=== PATIENT | male | born 1980 | race Caucasian/White ===

== ENCOUNTER 2017-07-12 13:11 | Inpatient (IN) | payer MEDICAID ==
[~2017-07-12] VITALS: Ht 170.2 cm; Wt 81.0 kg
[2017-07-12] MEDS ORDERED: ondansetron/PF 4mg/2ml inj IV ONE (14:25)
[2017-07-12] MEDS ORDERED: normal saline 1000ML IV soln IVB ONE (14:25)
[2017-07-12] MEDS ORDERED: LORazepam 2 mg/ml vial IV ONE (14:25)
[2017-07-12] MEDS ORDERED: diphenhydrAMINE 50 mg/ml inj IM ONE (14:25)
[2017-07-12 14:53] LABS: BASOPHILS % (AUTO) 0.3 % (0-1); EOSINOPHILS # (AUTO) 0.2 X10'3 (0-0.9); EOSINOPHILS % (AUTO) 1.8 % (0-6); HEMATOCRIT 50.3 % (42.0-52.0); HEMOGLOBIN 16.9 g/dl (14.0-17.9); LYMPHOCYTES # (AUTO) 2.1 X10'3 (1.1-4.8); LYMPHOCYTES % (AUTO) 24.2 % (21-51); MEAN CORPUSCULAR HEMOGLOBIN 27.9 PG (27.0-31.0); MEAN CORPUSCULAR HGB CONC 33.6 % (33.0-36.5); MEAN PLATELET VOLUME 7.9 FL (7.4-10.4); MONOCYTES # (AUTO) 0.5 X10'3 (0-0.9); MONOCYTES % (AUTO) 6.3 % (2-12); NEUTROPHILS # (AUTO) 5.7 X10'3 (1.8-7.7); NEUTROPHILS % (AUTO) 67.4 % (42-75); PLATELET COUNT 235 X10'3 (140-440); RED BLOOD COUNT 6.06 X10'6 (4.70-6.10); RED CELL DISTRIBUTION WIDTH 14.6 % (11.5-14.5); WHITE BLOOD COUNT 8.5 X10'3 (4.5-11.0)
[2017-07-12 14:56] LABS: CLARITY,URINE CLEAR (Clear); COLOR,URINE YELLOW (Yellow); GLUCOSE, URINE NEGATIVE (Neg); KETONES,URINE NEGATIVE (Neg); LEUKOCYTE ESTERASE ,URINE NEGATIVE (Neg); NITRITES, URINE NEGATIVE (Neg); OCCULT BLOOD,URINE NEGATIVE (Neg); PH,URINE 8.5 (4.8-8.0); PROTEIN,URINE NEGATIVE (Neg); UA COLLECTION TYPE CLN CATCH MIDSTREAM; UROBILINOGEN,URINE 0.2 E.U/dL (0.2-1.0)
[2017-07-12 15:00] LABS: URINE AMPHETAMINE SCREEN NEGATIVE (Neg); URINE BARBITUATE SCREEN NEGATIVE (Neg); URINE BENZODIAZEPINES SCREEN NEGATIVE (Neg); URINE CANNABINOID SCREEN POSITIVE (Neg); URINE COCAINE SCREEN NEGATIVE (Neg); URINE METHADONE SCREEN NEGATIVE (Neg); URINE OPIATE SCREEN NEGATIVE (Neg); URINE PHENCYCLIDINE SCREEN NEGATIVE (Neg)
[2017-07-12 15:03] LABS: INR 1.1 INR; PARTIAL THROMBOPLASTIN TIME 23 SECONDS (22-32); PROTHROMBIN TIME 10.9 SECONDS (9.0-12.0)
[2017-07-12 15:09] LABS: ALANINE AMINOTRANSFERASE 60 U/L (12-78); ALKALINE PHOSPHATASE 117 IU/L (46-116); ANION GAP 16 (8-16); ASPARTATE AMINO TRANSFERASE 55 U/L (10-37); BILIRUBIN,TOTAL 0.7 MG/DL (0.1-1.0); BLOOD UREA NITROGEN 12 MG/DL (7-18); CALCIUM 10.4 MG/DL (8.5-10.1); CHLORIDE 101 MMOL/L (99-107); CREATININE 1.34 MG/DL (0.60-1.10); GLUCOSE 129 MG/DL (70-104); POTASSIUM 3.1 MMOL/L (3.5-5.1); SODIUM 141 MMOL/L (135-145); TOTAL CARBON DIOXIDE 23.8 MMOL/L (24-32); TOTAL PROTEIN 8.2 G/DL (6.4-8.2); eGFR 60 ML/MIN
[2017-07-12 15:15] LABS: ETHANOL < 0.010 GM/DL (0.0-0.010)
[2017-07-12 15:38] LABS: LIPASE 3927 U/L (73-393)
[2017-07-12] MEDS: potassium Cl 20mEq in NS 1,000 ML IV SCH ×2 (16:19→18:54)
[2017-07-12] MEDS ORDERED: mag hydrox/Alum hydrox/simeth 30ml oral suspension PO PRN (16:20)
[2017-07-12] MEDS ORDERED: acetaminophen 325mg tablet PO PRN (16:20)
[2017-07-12] MEDS ORDERED: ondansetron/PF 4mg/2ml inj IV PRN (16:20)
[2017-07-12] MEDS ORDERED: potassium Cl 20 mEq SR tablet PO PRN ×2 (16:20)
[2017-07-12] MEDS ORDERED: magnesium Cl slow-release 64mg tablet PO PRN (16:20)
[2017-07-12] MEDS ORDERED: magnesium hydroxide 30ml (MOM) UD suspension PO PRN (16:20)
[2017-07-12] MEDS ORDERED: magnesium 2GM in 50ml NS 50 ML IV PRN (16:20)
[2017-07-12] MEDS ORDERED: potassium Cl 40MEQ/NS 500ml 500 ML IV PRN ×2 (16:20)
[2017-07-12] MEDS ORDERED: magnesium 4gm in 100ml NS 100 ML IV PRN (16:20)
[2017-07-12] MEDS ORDERED: HYDROmorphone 1 mg/ml syringe IV PRN ×2 (16:20)
[2017-07-12] MEDS: potassium 10mEq/100ml NS w/LIDOcaine (10mg/bag) IV SCH ×2 (16:31→17:00)
[2017-07-12] MEDS ORDERED: haloperidol 5mg tablet PO PRN (17:05)
[2017-07-12] MEDS ORDERED: dextrose 50%-water 50ml dispensing syringe IV PRN (17:05)
[2017-07-12] MEDS ORDERED: haloperidol lactate 5mg/ml inj IM PRN (17:05)
[2017-07-12] MEDS ORDERED: thiamine 100mg/ml 2ml inj. IV ONE (17:05)
[2017-07-12] MEDS ORDERED: HYDROmorphone inj. 0.5 MG/0.5 ML DISP.SYRIN IV PRN (18:37)
[2017-07-12] MEDS: HYDROmorphone inj. 0.5 MG/0.5 ML DISP.SYRIN IV PRN ×2 (18:46→22:40)
[2017-07-12 19:00] VITALS: BP 154/101
[2017-07-12] MEDS: heparin, porcine 5000 units/ml vial SQ SCH (20:20)
[2017-07-12] MEDS ORDERED: temazepam 15mg capsule PO PRN (21:00)
[2017-07-12] MEDS: LORazepam 2 mg/ml vial IV PRN (22:36)
[2017-07-13] VITALS: BP 160/90
[2017-07-13] MEDS: HYDROmorphone inj. 0.5 MG/0.5 ML DISP.SYRIN IV PRN ×5 (03:19→21:11)
[2017-07-13] MEDS: LORazepam 2 mg/ml vial IV PRN (03:19)
[2017-07-13 04:00] LABS: BASOPHILS % (AUTO) 0.3 % (0-1); EOSINOPHILS # (AUTO) 0.1 X10'3 (0-0.9); HEMATOCRIT 44.3 % (42.0-52.0); LYMPHOCYTES # (AUTO) 1.4 X10'3 (1.1-4.8); LYMPHOCYTES % (AUTO) 12.7 % (21-51); MEAN CORPUSCULAR HEMOGLOBIN 28.4 PG (27.0-31.0); MEAN CORPUSCULAR HGB CONC 33.9 % (33.0-36.5); MEAN CORPUSCULAR VOLUME 83.9 FL (78-98); MEAN PLATELET VOLUME 8.5 FL (7.4-10.4); MONOCYTES # (AUTO) 0.5 X10'3 (0-0.9); MONOCYTES % (AUTO) 4.4 % (2-12); NEUTROPHILS # (AUTO) 9.2 X10'3 (1.8-7.7); NEUTROPHILS % (AUTO) 81.6 % (42-75); PLATELET COUNT 166 X10'3 (140-440); RED BLOOD COUNT 5.28 X10'6 (4.70-6.10); RED CELL DISTRIBUTION WIDTH 14.9 % (11.5-14.5); WHITE BLOOD COUNT 11.3 X10'3 (4.5-11.0)
[2017-07-13 04:16] LABS: ALANINE AMINOTRANSFERASE 42 U/L (12-78); ALBUMIN 3.1 G/DL (3.4-5.0); ALBUMIN/GLOBULIN RATIO 0.9 (1.1-1.5); ALKALINE PHOSPHATASE 90 IU/L (46-116); ANION GAP 9 (8-16); ASPARTATE AMINO TRANSFERASE 33 U/L (10-37); BILIRUBIN,TOTAL 0.7 MG/DL (0.1-1.0); BLOOD UREA NITROGEN 11 MG/DL (7-18); BUN/CREATININE RATIO 11.3 (5.4-32.0); CALCIUM 8.4 MG/DL (8.5-10.1); CHLORIDE 104 MMOL/L (99-107); CREATININE 0.97 MG/DL (0.60-1.10); GLUCOSE 117 MG/DL (70-104); MAGNESIUM 1.1 MG/DL (1.5-2.4); POTASSIUM 4.2 MMOL/L (3.5-5.1); SODIUM 139 MMOL/L (135-145); TOTAL CARBON DIOXIDE 26.1 MMOL/L (24-32); TOTAL PROTEIN 6.4 G/DL (6.4-8.2); eGFR 87 ML/MIN
[2017-07-13 07:00] VITALS: BP 143/102
[2017-07-13] MEDS: K and/or MAG REPLACEMENT MC SCH (08:00)
[2017-07-13] MEDS: heparin, porcine 5000 units/ml vial SQ SCH ×2 (09:17→19:46)
[2017-07-13] MEDS ORDERED: LISI10TA4 PO (10:49)
[2017-07-13] MEDS ORDERED: DIVA250T6 PO (10:51)
[2017-07-13] MEDS ORDERED: KEP500T PO (10:51)
[2017-07-13 11:00] VITALS: BP 133/82
[2017-07-13] MEDS: lisinopril 10 MG tablet PO SCH (14:07)
[2017-07-13] MEDS: potassium Cl 20mEq in NS 1,000 ML IV SCH (17:28)
[2017-07-13 18:30] VITALS: BP 148/95
[2017-07-13] MEDS: levetiracetam 250mg tablet PO SCH (19:45)
[2017-07-14] VITALS: BP 135/97
[2017-07-14] MEDS: HYDROmorphone inj. 0.5 MG/0.5 ML DISP.SYRIN IV PRN ×6 (00:45→22:56)
[2017-07-14] MEDS: potassium Cl 20mEq in NS 1,000 ML IV SCH ×3 (02:51→22:53)
[2017-07-14 05:36] LABS: BASOPHILS % (AUTO) 0.2 % (0-1); EOSINOPHILS # (AUTO) 0.2 X10'3 (0-0.9); EOSINOPHILS % (AUTO) 1.4 % (0-6); HEMATOCRIT 43.7 % (42.0-52.0); HEMOGLOBIN 14.6 g/dl (14.0-17.9); LYMPHOCYTES # (AUTO) 1.6 X10'3 (1.1-4.8); LYMPHOCYTES % (AUTO) 14.6 % (21-51); MEAN CORPUSCULAR HEMOGLOBIN 28.3 PG (27.0-31.0); MEAN CORPUSCULAR HGB CONC 33.5 % (33.0-36.5); MEAN CORPUSCULAR VOLUME 84.6 FL (78-98); MEAN PLATELET VOLUME 8.5 FL (7.4-10.4); MONOCYTES # (AUTO) 0.5 X10'3 (0-0.9); MONOCYTES % (AUTO) 4.8 % (2-12); NEUTROPHILS # (AUTO) 8.5 X10'3 (1.8-7.7); PLATELET COUNT 158 X10'3 (140-440); RED BLOOD COUNT 5.17 X10'6 (4.70-6.10); RED CELL DISTRIBUTION WIDTH 14.8 % (11.5-14.5); WHITE BLOOD COUNT 10.8 X10'3 (4.5-11.0)
[2017-07-14 06:47] LABS: ALANINE AMINOTRANSFERASE 34 U/L (12-78); ALBUMIN 2.7 G/DL (3.4-5.0); ALBUMIN/GLOBULIN RATIO 0.7 (1.1-1.5); ALKALINE PHOSPHATASE 78 IU/L (46-116); ANION GAP 8 (8-16); ASPARTATE AMINO TRANSFERASE 27 U/L (10-37); BILIRUBIN,TOTAL 1.1 MG/DL (0.1-1.0); BLOOD UREA NITROGEN 7 MG/DL (7-18); BUN/CREATININE RATIO 7.6 (5.4-32.0); CALCIUM 8.2 MG/DL (8.5-10.1); CHLORIDE 101 MMOL/L (99-107); CHOL/HDL RATIO 3.6 (0.00-4.99); CHOLESTEROL 82 MG/DL (0-200); CREATININE 0.92 MG/DL (0.60-1.10); GLUCOSE 92 MG/DL (70-104); HDL CHOLESTEROL 23 MG/DL (35-60); LDL CHOLESTEROL 44 MG/DL (50-100); MAGNESIUM 1.6 MG/DL (1.5-2.4); SODIUM 135 MMOL/L (135-145); TOTAL CARBON DIOXIDE 25.7 MMOL/L (24-32); TOTAL PROTEIN 6.4 G/DL (6.4-8.2); TRIGLYCERIDES 133 MG/DL (20-135); eGFR > 90 ML/MIN
[2017-07-14 07:00] VITALS: BP 156/87
[2017-07-14] MEDS: levetiracetam 250mg tablet PO SCH ×2 (07:50→19:53)
[2017-07-14] MEDS: lisinopril 10 MG tablet PO SCH (07:50)
[2017-07-14] MEDS: heparin, porcine 5000 units/ml vial SQ SCH ×2 (07:51→19:53)
[2017-07-14] MEDS: K and/or MAG REPLACEMENT MC SCH (08:00)
[2017-07-14] MEDS: LORazepam 2 mg/ml vial IV PRN ×2 (08:07→15:21)
[2017-07-14 11:00] VITALS: BP 151/80
[2017-07-14] MEDS: nicotine 21mg patch - 24 hr TD SCH (16:35)
[2017-07-14] MEDS ORDERED: LORazepam 2 mg/ml vial IV PRN (17:05)
[2017-07-14 18:30] VITALS: BP 148/104
[2017-07-14] MEDS: LORazepam 1 MG tablet PO PRN ×3 (18:38→22:53)
[2017-07-15] MEDS: LORazepam 1 MG tablet PO PRN (02:44)
[2017-07-15] MEDS: HYDROmorphone inj. 0.5 MG/0.5 ML DISP.SYRIN IV PRN ×2 (02:45→06:51)
[2017-07-15 05:16] LABS: BASOPHILS % (AUTO) 0.2 % (0-1); EOSINOPHILS % (AUTO) 0.5 % (0-6); HEMATOCRIT 42.3 % (42.0-52.0); HEMOGLOBIN 14.4 g/dl (14.0-17.9); LYMPHOCYTES # (AUTO) 1.4 X10'3 (1.1-4.8); LYMPHOCYTES % (AUTO) 17.7 % (21-51); MEAN CORPUSCULAR HEMOGLOBIN 28.5 PG (27.0-31.0); MEAN CORPUSCULAR HGB CONC 34.1 % (33.0-36.5); MEAN CORPUSCULAR VOLUME 83.6 FL (78-98); MEAN PLATELET VOLUME 8.1 FL (7.4-10.4); MONOCYTES # (AUTO) 0.5 X10'3 (0-0.9); MONOCYTES % (AUTO) 6.3 % (2-12); NEUTROPHILS # (AUTO) 5.8 X10'3 (1.8-7.7); NEUTROPHILS % (AUTO) 75.3 % (42-75); PLATELET COUNT 152 X10'3 (140-440); RED BLOOD COUNT 5.06 X10'6 (4.70-6.10); RED CELL DISTRIBUTION WIDTH 14.2 % (11.5-14.5); WHITE BLOOD COUNT 7.7 X10'3 (4.5-11.0)
[2017-07-15 06:10] LABS: ALANINE AMINOTRANSFERASE 31 U/L (12-78); ALBUMIN 2.8 G/DL (3.4-5.0); ALBUMIN/GLOBULIN RATIO 0.7 (1.1-1.5); ALKALINE PHOSPHATASE 81 IU/L (46-116); ANION GAP 10 (8-16); ASPARTATE AMINO TRANSFERASE 22 U/L (10-37); BILIRUBIN,TOTAL 1.1 MG/DL (0.1-1.0); BLOOD UREA NITROGEN 8 MG/DL (7-18); CALCIUM 8.9 MG/DL (8.5-10.1); CHLORIDE 99 MMOL/L (99-107); GLUCOSE 90 MG/DL (70-104); MAGNESIUM 1.4 MG/DL (1.5-2.4); POTASSIUM 4.2 MMOL/L (3.5-5.1); SODIUM 134 MMOL/L (135-145); TOTAL CARBON DIOXIDE 25.3 MMOL/L (24-32); TOTAL PROTEIN 6.9 G/DL (6.4-8.2); eGFR > 90 ML/MIN
[2017-07-15 07:00] VITALS: BP 150/99
[2017-07-15] MEDS: nicotine 21mg patch - 24 hr TD SCH (07:49)
[2017-07-15] MEDS: lisinopril 10 MG tablet PO SCH (07:49)
[2017-07-15] MEDS: levetiracetam 250mg tablet PO SCH (07:49)
[2017-07-15] MEDS: heparin, porcine 5000 units/ml vial SQ SCH (07:50)
[2017-07-15] MEDS: K and/or MAG REPLACEMENT MC SCH (08:00)
[2017-07-15] MEDS: potassium Cl 20mEq in NS 1,000 ML IV SCH (08:50)
[2017-07-16] MEDS ORDERED: LORazepam 2 mg/ml vial IV PRN (17:05)
[2017-07-16] MEDS ORDERED: LORazepam 1 MG tablet PO PRN (17:05)
== END 2017-07-15 11:00 | disposition left against medical advice (07) | DRG 282 ==
LOC: ER 13:11 → ED HOLD 16:19 → SUR 3N 17:51
PROVIDERS: ADMIT Internal Medicine; ATTEND Family Medicine
DX: K85.90 Acute pancreatitis without necrosis or infection, unspecified (principal); E83.52 Hypercalcemia; E87.1 Hypo-osmolality and hyponatremia; K80.20 Calculus of gallbladder without cholecystitis without obstruction; E87.6 Hypokalemia; F10.239 Alcohol dependence with withdrawal, unspecified; F12.10 Cannabis abuse, uncomplicated; F17.210 Nicotine dependence, cigarettes, uncomplicated; F41.9 Anxiety disorder, unspecified; G40.909 Epilepsy, unspecified, not intractable, without status epilepticus; R74.0 Nonspecific elevation of levels of transaminase and lactic acid dehydrogenase [LDH]; Z53.21 Procedure and treatment not carried out due to patient leaving prior to being seen by health care provider; Z88.0 Allergy status to penicillin; Z71.6 Tobacco abuse counseling
CPT/HCPCS: 36415; 74176; 74181; 76700; 80053; 80061; 80305; 80320; 80329; 81003; 82140; 83690; 83735; 84484; 85025; 85610; 85730; 87070; 96372; 96374; 96375; 99285; A6258; J1170; J1200; J1644; J2060; J2270; J2405; J3411; J3475; J3480; J7030

== ENCOUNTER 2017-10-04 18:12 | Emergency (ER) | payer MEDICARE, MEDICAID ==
[~2017-10-04] VITALS: Ht 170.2 cm; Wt 78.0 kg
[~2017-10-04 18:12] MED LIST: DIVA250T6 PO; KEP500T PO; LISI10TA4 PO
[2017-10-04] MEDS ORDERED: HYDROcodone/acetaminophen 5mg/325mg tablet PO ONE (19:40)
[2017-10-04] MEDS ORDERED: ibuprofen 200mg tablet PO ONE (19:40)
[2017-10-04] MEDS ORDERED: LEVE500T PO (21:07)
[2017-10-04] MEDS ORDERED: DIVA500T9 PO (21:07)
[2017-10-04 21:24] VITALS: BP 140/90
== END 2017-10-04 21:27 | disposition home or self-care (01) ==
LOC: ER 18:13
DX: S92.001A Unspecified fracture of right calcaneus, initial encounter for closed fracture (principal); G40.909 Epilepsy, unspecified, not intractable, without status epilepticus; F12.10 Cannabis abuse, uncomplicated; Z76.0 Encounter for issue of repeat prescription; Z88.0 Allergy status to penicillin; Z79.899 Other long term (current) drug therapy; W22.8XXA Striking against or struck by other objects, initial encounter; Y93.89 Activity, other specified; Y92.89 Other specified places as the place of occurrence of the external cause; Y99.8 Other external cause status
CPT/HCPCS: 73650; 99283; 99284

== ENCOUNTER 2018-03-03 00:53 | Emergency (ER) | payer MEDICARE, MEDICAID ==
[~2018-03-03] VITALS: Ht 170.2 cm; Wt 78.8 kg
[~2018-03-03 00:53] MED LIST changes: +DIVA-74 PO; -DIVA250T6 PO; +LEVE500T PO
[2018-03-03 02:43] LABS: BASOPHILS % (AUTO) 0.9 % (0-1); EOSINOPHILS # (AUTO) 0.2 X10'3 (0-0.9); EOSINOPHILS % (AUTO) 3.5 % (0-6); HEMOGLOBIN 13.8 g/dl (14.0-17.9); LYMPHOCYTES # (AUTO) 2.5 X10'3 (1.1-4.8); LYMPHOCYTES % (AUTO) 44.2 % (21-51); MEAN CORPUSCULAR HEMOGLOBIN 27.6 PG (27.0-31.0); MEAN CORPUSCULAR HGB CONC 33.8 % (33.0-36.5); MEAN CORPUSCULAR VOLUME 81.8 FL (78-98); MEAN PLATELET VOLUME 8.3 FL (7.4-10.4); MONOCYTES # (AUTO) 0.4 X10'3 (0-0.9); MONOCYTES % (AUTO) 6.6 % (2-12); NEUTROPHILS # (AUTO) 2.5 X10'3 (1.8-7.7); NEUTROPHILS % (AUTO) 44.8 % (42-75); PLATELET COUNT 172 X10'3 (140-440); RED BLOOD COUNT 5.01 X10'6 (4.70-6.10); RED CELL DISTRIBUTION WIDTH 15.2 % (11.5-14.5); WHITE BLOOD COUNT 5.6 X10'3 (4.5-11.0)
[2018-03-03 02:48] LABS: CLARITY,URINE CLEAR (Clear); COLOR,URINE YELLOW (Yellow); GLUCOSE, URINE NEGATIVE (Neg); KETONES,URINE NEGATIVE (Neg); LEUKOCYTE ESTERASE ,URINE NEGATIVE (Neg); NITRITES, URINE NEGATIVE (Neg); OCCULT BLOOD,URINE NEGATIVE (Neg); PH,URINE 6.5 (4.8-8.0); PROTEIN,URINE NEGATIVE (Neg)
[2018-03-03 02:54] LABS: UA COLLECTION TYPE CLN CATCH MIDSTREAM
[2018-03-03 02:56] LABS: ALANINE AMINOTRANSFERASE 38 U/L (12-78); ALBUMIN 3.3 G/DL (3.4-5.0); ALKALINE PHOSPHATASE 79 IU/L (46-116); ANION GAP 5 (8-16); ASPARTATE AMINO TRANSFERASE 31 U/L (10-37); BILIRUBIN,TOTAL 0.6 MG/DL (0.1-1.0); BLOOD UREA NITROGEN 5 MG/DL (7-18); BUN/CREATININE RATIO 5.7 (5.4-32.0); CALCIUM 8.4 MG/DL (8.5-10.1); CHLORIDE 107 MMOL/L (99-107); CREATININE 0.88 MG/DL (0.60-1.10); GLUCOSE 103 MG/DL (70-104); POTASSIUM 3.9 MMOL/L (3.5-5.1); SODIUM 139 MMOL/L (135-145); TOTAL CARBON DIOXIDE 27.2 MMOL/L (24-32); TOTAL PROTEIN 6.5 G/DL (6.4-8.2); eGFR > 90 ML/MIN
[2018-03-03 02:58] LABS: ETHANOL < 0.010 GM/DL (0.0-0.010)
[2018-03-03] MEDS ORDERED: levetiracetam inj 1,000 MG in normal saline 100ml IV soln 90 ML IV ONE (04:00)
[2018-03-03 04:43] VITALS: BP 127/85
== END 2018-03-03 04:45 | disposition home or self-care (01) ==
LOC: ER 00:53
DX: G40.909 Epilepsy, unspecified, not intractable, without status epilepticus (principal); F12.10 Cannabis abuse, uncomplicated; Z88.0 Allergy status to penicillin; Z79.899 Other long term (current) drug therapy
CPT/HCPCS: 36415; 71045; 80053; 80320; 81003; 85025; 96365; 99285; J1953; J7030

== ENCOUNTER 2018-07-18 16:04 | Inpatient (IN) | payer MEDICARE, MEDICAID ==
[~2018-07-18] VITALS: Ht 177.8 cm; Wt 75.0 kg
[2018-07-18] MEDS ORDERED: normal saline 1000ML IV soln IV ONE (16:05)
[2018-07-18 16:28] LABS: BASOPHILS % (AUTO) 0.3 % (0-1); EOSINOPHILS # (AUTO) 0.2 X10'3 (0-0.9); EOSINOPHILS % (AUTO) 1.8 % (0-6); HEMATOCRIT 48.8 % (42.0-52.0); HEMOGLOBIN 15.8 g/dl (14.0-17.9); LYMPHOCYTES # (AUTO) 3.7 X10'3 (1.1-4.8); LYMPHOCYTES % (AUTO) 27.5 % (21-51); MEAN CORPUSCULAR HEMOGLOBIN 26.8 PG (27.0-31.0); MEAN CORPUSCULAR HGB CONC 32.4 % (33.0-36.5); MEAN CORPUSCULAR VOLUME 82.5 FL (78-98); MEAN PLATELET VOLUME 8.3 FL (7.4-10.4); MONOCYTES # (AUTO) 0.5 X10'3 (0-0.9); MONOCYTES % (AUTO) 3.8 % (2-12); NEUTROPHILS # (AUTO) 8.9 X10'3 (1.8-7.7); NEUTROPHILS % (AUTO) 66.6 % (42-75); PLATELET COUNT 239 X10'3 (140-440); RED BLOOD COUNT 5.91 X10'6 (4.70-6.10); RED CELL DISTRIBUTION WIDTH 14.6 % (11.5-14.5); WHITE BLOOD COUNT 13.3 X10'3 (4.5-11.0)
[2018-07-18 16:40] LABS: PROTHROMBIN TIME 10.3 SECONDS (9.0-12.0)
[2018-07-18 16:41] LABS: PARTIAL THROMBOPLASTIN TIME 26 SECONDS (22-32)
[2018-07-18 16:42] LABS: ALANINE AMINOTRANSFERASE 60 U/L (12-78); ALKALINE PHOSPHATASE 88 IU/L (46-116); ANION GAP 32 (8-16); ASPARTATE AMINO TRANSFERASE 68 U/L (10-37); BILIRUBIN,TOTAL 0.5 MG/DL (0.1-1.0); BLOOD UREA NITROGEN 10 MG/DL (7-18); CALCIUM 8.5 MG/DL (8.5-10.1); CHLORIDE 97 MMOL/L (99-107); CREATININE 1.25 MG/DL (0.60-1.10); ETHANOL 0.029 GM/DL (0.0-0.010); GLUCOSE 134 MG/DL (70-104); MAGNESIUM 2.2 MG/DL (1.5-2.4); POTASSIUM 4.1 MMOL/L (3.5-5.1); SODIUM 139 MMOL/L (135-145); TOTAL PROTEIN 8.2 G/DL (6.4-8.2); eGFR 65 ML/MIN
[2018-07-18 16:43] LABS: TOTAL CARBON DIOXIDE 9.8 MMOL/L (24-32)
[2018-07-18 17:47] LABS: CLARITY,URINE CLEAR (Clear); COLOR,URINE STRAW (Yellow); GLUCOSE, URINE NEGATIVE (Neg); KETONES,URINE TRACE mg/dl (Neg); LEUKOCYTE ESTERASE ,URINE NEGATIVE (Neg); NITRITES, URINE NEGATIVE (Neg); OCCULT BLOOD,URINE TRACE-INTACT (Neg); PH,URINE 6.5 (4.8-8.0); PROTEIN,URINE 30 mg/dl (Neg); UROBILINOGEN,URINE 0.2 E.U/dL (0.2-1.0)
[2018-07-18 17:52] LABS: URINE AMPHETAMINE SCREEN NEGATIVE (Neg); URINE BARBITUATE SCREEN NEGATIVE (Neg); URINE BENZODIAZEPINES SCREEN NEGATIVE (Neg); URINE CANNABINOID SCREEN POSITIVE (Neg); URINE COCAINE SCREEN NEGATIVE (Neg); URINE METHADONE SCREEN NEGATIVE (Neg); URINE OPIATE SCREEN NEGATIVE (Neg); URINE PHENCYCLIDINE SCREEN NEGATIVE (Neg)
[2018-07-18 17:53] LABS: UA COLLECTION TYPE CLN CATCH MIDSTREAM
[2018-07-18 17:58] LABS: BACTERIA,URINE NONE SEEN /HPF (Neg); RBC,URINE 0-2 /HPF (0-2); SQUAMOUS EPITHELIAL CELL,UR FEW /LPF (FEW); WBC,URINE 0-4 /HPF (0-4)
[2018-07-18 17:59] LABS: SPERM FEW /HPF (NEGATIVE)
[2018-07-18] MEDS ORDERED: normal saline 1000ML IV soln IVB ONE (18:10)
[2018-07-18] MEDS ORDERED: LORazepam 2 mg/ml vial ONE (18:26)
[2018-07-18] MEDS ORDERED: levetiracetam inj 1,500 MG in normal saline 100ml IV soln 85 ML IV STA (18:27)
--- NOTE | 2018-07-18 18:29 | NUR ---
PT IS HAVING A SEIZURE, DR TENORIO AT BEDSIDE. NEW VERBAL ORDER FOR 2MG ATIVAN.
[2018-07-18 18:38] LABS: CREATINE KINASE 230 U/L (39-308)
--- NOTE | 2018-07-18 18:45 | NUR ---
NASAL TRUMPET RIGHT NARE, TOWEL ROLL UNDER SHOUDLERS FOR REPOSITIONING OF AIRWAY FOR SNORING RESPIRATIONS, AND THIS TECHNIQUE CORRECTED HIS SNORING RR.
--- NOTE | 2018-07-18 19:41 | NUR ---
PT MOTHER CALLED, CESIA [phone]. SHE WILL GIVE HER SON A RIDE HOME.
[2018-07-18] MEDS ORDERED: LORazepam 1 MG tablet PO ONE (19:45)
--- NOTE | 2018-07-18 19:53 | NUR ---
PT IS RESTLESS, OXYGEN MASK REMOVED, HOOKED UP TO PORTABLE MONITOR PREPARING FOR CT.
[2018-07-18] MEDS ORDERED: LORazepam 2 mg/ml vial IV ONE (20:05)
--- NOTE | 2018-07-18 20:18 | NUR ---
PT TO CT
--- NOTE | 2018-07-18 20:30 | NUR ---
PT BACK FROM CT
--- NOTE | 2018-07-18 20:31 | NUR ---
PT IS FOLLOWING COMMANDS AND COOPERATIVE, RESTRAINTS HAVE BEEN MOVED
[2018-07-18] MEDS ORDERED: ondansetron/PF 4mg/2ml inj IV PRN (21:25)
[2018-07-18] MEDS ORDERED: magnesium hydroxide 30ml (MOM) UD suspension PO PRN (21:25)
[2018-07-18] MEDS ORDERED: HYDROmorphone inj. 0.5 MG/0.5 ML DISP.SYRIN IV PRN (21:25)
[2018-07-18] MEDS ORDERED: acetaminophen 325mg tablet PO PRN (21:25)
[2018-07-18] MEDS ORDERED: mag hydrox/Alum hydrox/simeth 30ml oral suspension PO PRN (21:25)
[2018-07-18] MEDS ORDERED: LORazepam 2 mg/ml vial IV PRN (21:25)
--- NOTE | 2018-07-18 22:43 | NUR ---
dr gagnon at bedside for admission
[2018-07-18] MEDS: normal saline 1000ml 1,000 ML IV SCH (23:29)
--- NOTE | 2018-07-18 23:37 | NUR ---
he drank a cup of ice water per his request.
--- NOTE | 2018-07-18 23:44 | NUR ---
PER DR. SEBASTIAN MUÑIZ AND NO REDRAW OF LACTIC UNTIL AM LABS.
--- NOTE | 2018-07-18 23:45 | NUR ---
REPORT FROM SACHIN VILLEGAS. PT UP TO FLOOR VIA [place] AND ONE ATTENDANT. ABLE TO STAND AND PIVOT TO BED. VSS, ORDER TO D/C MARY KAY. 2 PERSON SKIN CHECK WITH SACHIN LYLES.
[2018-07-18 23:55] VITALS: BP 130/75
[2018-07-19] MEDS: normal saline 1000ml 1,000 ML IV SCH (00:31)
[2018-07-19 06:00] VITALS: BP 123/79
[2018-07-19 06:25] LABS: ALANINE AMINOTRANSFERASE 42 U/L (12-78); ALBUMIN 3.1 G/DL (3.4-5.0); ALBUMIN/GLOBULIN RATIO 0.9 (1.1-1.5); ALKALINE PHOSPHATASE 62 IU/L (46-116); ANION GAP 14 (8-16); ASPARTATE AMINO TRANSFERASE 43 U/L (10-37); BILIRUBIN,TOTAL 0.9 MG/DL (0.1-1.0); BLOOD UREA NITROGEN 10 MG/DL (7-18); BUN/CREATININE RATIO 11.9 (5.4-32.0); CALCIUM 7.7 MG/DL (8.5-10.1); CHLORIDE 104 MMOL/L (99-107); CREATININE 0.84 MG/DL (0.60-1.10); GLUCOSE 96 MG/DL (70-104); POTASSIUM 3.3 MMOL/L (3.5-5.1); SODIUM 139 MMOL/L (135-145); TOTAL CARBON DIOXIDE 21.3 MMOL/L (24-32); TOTAL PROTEIN 6.4 G/DL (6.4-8.2); eGFR > 90 ML/MIN
[2018-07-19 06:27] LABS: BASOPHILS % (AUTO) 0.2 % (0-1); EOSINOPHILS # (AUTO) 0.1 X10'3 (0-0.9); EOSINOPHILS % (AUTO) 0.8 % (0-6); HEMATOCRIT 41.4 % (42.0-52.0); HEMOGLOBIN 13.9 g/dl (14.0-17.9); LYMPHOCYTES # (AUTO) 1.8 X10'3 (1.1-4.8); LYMPHOCYTES % (AUTO) 22.2 % (21-51); MEAN CORPUSCULAR HEMOGLOBIN 27.5 PG (27.0-31.0); MEAN CORPUSCULAR HGB CONC 33.7 % (33.0-36.5); MEAN CORPUSCULAR VOLUME 81.8 FL (78-98); MEAN PLATELET VOLUME 8.7 FL (7.4-10.4); MONOCYTES # (AUTO) 0.6 X10'3 (0-0.9); NEUTROPHILS # (AUTO) 5.7 X10'3 (1.8-7.7); NEUTROPHILS % (AUTO) 69.8 % (42-75); PLATELET COUNT 170 X10'3 (140-440); RED BLOOD COUNT 5.06 X10'6 (4.70-6.10); RED CELL DISTRIBUTION WIDTH 14.1 % (11.5-14.5); WHITE BLOOD COUNT 8.2 X10'3 (4.5-11.0)
--- NOTE | 2018-07-19 06:30 | NUR ---
REPORT GIVEN TO SACHIN JACOBO.
[2018-07-19] MEDS ORDERED: levetiracetam 250mg tablet PO SCH (08:00)
[2018-07-19] MEDS ORDERED: divalproex sodium 500mg tablet.DR PO SCH (08:30)
[2018-07-19] MEDS ORDERED: DIVA-74 PO (09:23)
[2018-07-19] MEDS ORDERED: LEVE500T PO (09:23)
[2018-07-19 10:00] VITALS: BP 134/104
[2018-07-19] MEDS ORDERED: potassium Cl 20 mEq SR tablet PO ONE (10:30)
--- NOTE | 2018-07-19 10:36 | NUR ---
Pt admit w/ etoh FABIEN d/w RN for thiamin/folic/MVI per MD given hx. Addendum: 07/19/18 at [address] Amended: Links added.
--- NOTE | 2018-07-19 10:44 | NUR ---
Discharge instructions given, Tele removed, IV's removed
[2018-07-21] MEDS ORDERED: LISI40TA4 PO (21:58)
== END 2018-07-19 10:30 | disposition home or self-care (01) | DRG 101 ==
LOC: ER 16:04 → ED HOLD 21:21 → ORTHO 4S 23:45
PROVIDERS: ADMIT Internal Medicine; ATTEND Internal Medicine
DX: G40.409 Other generalized epilepsy and epileptic syndromes, not intractable, without status epilepticus (principal); E87.2 Acidosis; F17.210 Nicotine dependence, cigarettes, uncomplicated; F12.90 Cannabis use, unspecified, uncomplicated; Z79.899 Other long term (current) drug therapy; Z88.0 Allergy status to penicillin
CPT/HCPCS: 36415; 70450; 71045; 80053; 80305; 80320; 81001; 82550; 83605; 83735; 84145; 85025; 85610; 85730; 87070; 87502; 87503; 93005; 96361; 96365; 96375; 99285; G0378; J1170; J1953; J2060; J7030

== ENCOUNTER 2018-09-03 04:54 | Emergency (ER) | payer MEDICARE, MEDICAID ==
[~2018-09-03] VITALS: Ht 170.2 cm; Wt 71.8 kg
[~2018-09-03 04:54] MED LIST changes: -KEP500T PO
[2018-09-03 05:03] VITALS: BP 133/108
--- NOTE | 2018-09-03 06:03 | NUR ---
During assessment, patient indicated that he thought that he had the flu and wanted to be tested for it. Orders for flu swab obtained and swab obtained. Immediately after, patient was noted exiting the department out the ambulance doors. He did not tell staff or give any indication for why he was leaving. MANDEEP Tapia was informed.
== END 2018-09-03 06:12 | disposition left against medical advice (07) ==
LOC: ER 04:54
DX: R05 Cough (principal); J00 Acute nasopharyngitis [common cold]; F17.210 Nicotine dependence, cigarettes, uncomplicated; Z53.21 Procedure and treatment not carried out due to patient leaving prior to being seen by health care provider
CPT/HCPCS: 71045; 87502; 87503; 99284

== ENCOUNTER 2018-09-08 09:54 | Emergency (ER) | payer MEDICARE, MEDICAID ==
[~2018-09-08] VITALS: Ht 170.2 cm; Wt 79.6 kg
[2018-09-08] MEDS ORDERED: ibuprofen tablet 400 MG TABLET PO ONE (12:45)
[2018-09-08] MEDS ORDERED: CHLO25CA10 PO (12:47)
--- NOTE | 2018-09-08 13:11 | NUR ---
RIGHT SHOULDER SLING PLACED; DISCUSSED SHOULDER SPRAIN CARE: PATIENT VERBALIZED UNDERSTANDING. DISCUSSED LIBRIUM AND SIDE EFFECTS AND PATIENT WILL TAKE DIRECTED. DISCUSSED AND PATIENT VERBALIZED SIGNS AND SYMPTOMS OF ETOH WITHDRAWAL. PATIENT IS GOING DIRECTLY TO THE [facility]
[2018-09-08 13:15] VITALS: BP 165/81
== END 2018-09-08 13:17 | disposition home or self-care (01) ==
LOC: ER 09:55
DX: S43.401A Unspecified sprain of right shoulder joint, initial encounter (principal); F10.20 Alcohol dependence, uncomplicated; F15.90 Other stimulant use, unspecified, uncomplicated; F17.200 Nicotine dependence, unspecified, uncomplicated; G40.909 Epilepsy, unspecified, not intractable, without status epilepticus; Z88.0 Allergy status to penicillin; X58.XXXA Exposure to other specified factors, initial encounter; Y93.89 Activity, other specified; Y92.89 Other specified places as the place of occurrence of the external cause; Y99.8 Other external cause status
CPT/HCPCS: 73030; 99283

== ENCOUNTER 2018-10-04 03:30 | Emergency (ER) | payer MEDICARE, MEDICAID ==
[~2018-10-04] VITALS: Ht 170.2 cm; Wt 72.5 kg
[~2018-10-04 03:30] MED LIST changes: +CHLO25CA10 PO
[2018-10-04 03:36] VITALS: BP 132/90
== END 2018-10-04 06:13 | disposition left against medical advice (07) ==
LOC: ER 03:31
DX: M79.671 Pain in right foot (principal); R20.0 Anesthesia of skin

== ENCOUNTER 2018-11-13 14:34 | Emergency (ER) | payer OTHER, MEDICARE, MEDICAID ==
[~2018-11-13] VITALS: Ht 172.7 cm; Wt 72.0 kg
[2018-11-13] MEDS ORDERED: normal saline 1000ML IV soln IVB ONE (15:05)
[2018-11-13 15:13] LABS: BASOPHILS % (AUTO) 0.4 % (0-1); EOSINOPHILS % (AUTO) 0.3 % (0-6); HEMOGLOBIN 15.4 g/dl (14.0-17.9); LYMPHOCYTES # (AUTO) 2.9 X10'3 (1.1-4.8); LYMPHOCYTES % (AUTO) 36.2 % (21-51); MEAN CORPUSCULAR HEMOGLOBIN 27.3 PG (27.0-31.0); MEAN CORPUSCULAR HGB CONC 32.8 g/dL (33.0-36.5); MEAN CORPUSCULAR VOLUME 83.4 FL (78-98); MEAN PLATELET VOLUME 8.1 FL (7.4-10.4); MONOCYTES # (AUTO) 0.7 X10'3 (0-0.9); MONOCYTES % (AUTO) 8.6 % (2-12); NEUTROPHILS # (AUTO) 4.3 X10'3 (1.8-7.7); NEUTROPHILS % (AUTO) 54.5 % (42-75); PLATELET COUNT 248 X10'3 (140-440); RED BLOOD COUNT 5.63 X10'6 (4.70-6.10); RED CELL DISTRIBUTION WIDTH 14.7 % (11.5-14.5); WHITE BLOOD COUNT 7.9 X10'3 (4.5-11.0)
[2018-11-13 15:19] LABS: CLARITY,URINE SLIGHTLY CLOUDY (Clear); COLOR,URINE STRAW (Yellow); GLUCOSE, URINE NEGATIVE (Neg); KETONES,URINE NEGATIVE (Neg); LEUKOCYTE ESTERASE ,URINE TRACE (Neg); NITRITES, URINE NEGATIVE (Neg); OCCULT BLOOD,URINE MODERATE (Neg); PH,URINE 6.5 (4.8-8.0); PROTEIN,URINE 100 mg/dl (Neg); UROBILINOGEN,URINE 0.2 E.U/dL (0.2-1.0)
[2018-11-13 15:25] LABS: UA COLLECTION TYPE STRAIGHT CATH
[2018-11-13 15:27] LABS: BACTERIA,URINE FEW /HPF (Neg); MUCUS STRANDS FEW /LPF (Neg); SQUAMOUS EPITHELIAL CELL,UR NONE SEEN /LPF (FEW)
[2018-11-13 15:28] LABS: ALANINE AMINOTRANSFERASE 32 U/L (12-78); ALKALINE PHOSPHATASE 96 IU/L (46-116); ANION GAP 27 (8-16); ASPARTATE AMINO TRANSFERASE 33 U/L (10-37); BILIRUBIN,TOTAL 0.8 MG/DL (0.1-1.0); BLOOD UREA NITROGEN 12 MG/DL (7-18); CALCIUM 9.9 MG/DL (8.5-10.1); CHLORIDE 93 MMOL/L (99-107); ETHANOL < 0.010 GM/DL (0.0-0.010); GLUCOSE 180 MG/DL (70-104); POTASSIUM 3.6 MMOL/L (3.5-5.1); SODIUM 134 MMOL/L (135-145); TOTAL PROTEIN 7.9 G/DL (6.4-8.2); eGFR 52 ML/MIN
[2018-11-13 15:28] LABS: SPERM FEW /HPF (NEGATIVE)
[2018-11-13 15:31] LABS: TOTAL CARBON DIOXIDE 13.6 MMOL/L (24-32)
[2018-11-13 15:34] LABS: URINE AMPHETAMINE SCREEN NEGATIVE (Neg); URINE BARBITUATE SCREEN NEGATIVE (Neg); URINE BENZODIAZEPINES SCREEN POSITIVE (Neg); URINE CANNABINOID SCREEN POSITIVE (Neg); URINE COCAINE SCREEN NEGATIVE (Neg); URINE METHADONE SCREEN NEGATIVE (Neg); URINE OPIATE SCREEN NEGATIVE (Neg); URINE PHENCYCLIDINE SCREEN NEGATIVE (Neg)
--- NOTE | 2018-11-13 15:45 | NUR ---
20 of versed given correctional captain-CN made aware,Dr. Mcnamara's scribe to call and verify dosage from EMS.
[2018-11-13] MEDS ORDERED: LEVE500T PO (16:50)
[2018-11-13] MEDS ORDERED: lisinopril 10 MG tablet PO ONE (16:50)
[2018-11-13] MEDS ORDERED: levetiracetam 250mg tablet PO ONE (16:50)
[2018-11-13] MEDS ORDERED: LISI10TA4 PO (16:50)
[2018-11-13 17:55] VITALS: BP 144/102
== END 2018-11-13 18:00 ==
LOC: ER 14:34 → EEVIPCON 14:34 → ER 18:00
DX: R56.9 Unspecified convulsions (principal); R41.82 Altered mental status, unspecified; I10 Essential (primary) hypertension; F15.90 Other stimulant use, unspecified, uncomplicated; Z88.0 Allergy status to penicillin; Z79.899 Other long term (current) drug therapy
CPT/HCPCS: 36415; 70450; 71045; 80053; 80305; 80320; 81001; 85025; 93005; 96360; 99284; J7030

== ENCOUNTER 2018-12-28 08:21 | Outpatient (CLI) | payer MEDICARE, MEDICAID | END 2018-12-28 23:59 | disposition home or self-care (01) | LOC: RAD 08:21 | DX: G40.409 Other generalized epilepsy and epileptic syndromes, not intractable, without status epilepticus (principal) | CPT/HCPCS: 95819 ==

== ENCOUNTER 2019-02-16 17:09 | Emergency (ER) | payer MEDICARE, MEDICAID ==
[~2019-02-16] VITALS: Ht 170.2 cm; Wt 81.8 kg
[2019-02-16] MEDS ORDERED: normal saline 1000ML IV soln IVB ONE (17:25)
[2019-02-16] MEDS ORDERED: ondansetron/PF 4mg/2ml inj IV ONE (17:25)
--- NOTE | 2019-02-16 18:45 | NUR ---
pt stated that he was not happy he was being d\\c'd - told patient that if he waited in his room we would have the MD speak with him again but he doesn't care to wait. He signed d\\c paperwork and stated "I will get my records and just follow up with my doctor"
[2019-02-16 18:46] VITALS: BP 147/86
== END 2019-02-16 18:56 | disposition home or self-care (01) ==
LOC: ER 17:11
DX: T67.5XXA Heat exhaustion, unspecified, initial encounter (principal); F15.90 Other stimulant use, unspecified, uncomplicated; R53.1 Weakness; R56.9 Unspecified convulsions; Z88.0 Allergy status to penicillin; Z79.899 Other long term (current) drug therapy; Y92.89 Other specified places as the place of occurrence of the external cause
CPT/HCPCS: 99283; J7030

== ENCOUNTER 2019-02-24 02:03 | Emergency (ER) | payer MEDICARE, MEDICAID ==
[~2019-02-24] VITALS: Ht 170.2 cm; Wt 80.9 kg
[2019-02-24 02:10] VITALS: BP 150/95
[2019-02-24] MEDS ORDERED: ketorolac trometh inj. 60 MG/2 ML VIAL IM ONE (02:30)
[2019-02-24] MEDS ORDERED: proCHLORperazine 10mg tablet PO ONE (02:30)
[2019-02-24] MEDS ORDERED: acetaminophen 325mg tablet PO ONE (02:30)
== END 2019-02-24 02:51 | disposition home or self-care (01) ==
LOC: ER 02:03
DX: S06.0X0A Concussion without loss of consciousness, initial encounter (principal); F15.90 Other stimulant use, unspecified, uncomplicated; Z88.0 Allergy status to penicillin; Z79.899 Other long term (current) drug therapy; Y04.0XXA Assault by unarmed brawl or fight, initial encounter; Y93.89 Activity, other specified; Y92.89 Other specified places as the place of occurrence of the external cause; Y99.9 Unspecified external cause status
CPT/HCPCS: 96372; 99283; J1885; Q0164

== ENCOUNTER 2020-03-17 13:02 | Emergency (ER) | payer MEDICARE, MEDICAID ==
[~2020-03-17] VITALS: Ht 170.2 cm; Wt 78.0 kg
[2020-03-17 15:24] VITALS: BP 130/83
== END 2020-03-17 16:27 | disposition home or self-care (01) ==
LOC: ER 13:03
DX: S05.11XA Contusion of eyeball and orbital tissues, right eye, initial encounter (principal); H11.31 Conjunctival hemorrhage, right eye; S09.90XA Unspecified injury of head, initial encounter; H92.02 Otalgia, left ear; H53.8 Other visual disturbances; G40.909 Epilepsy, unspecified, not intractable, without status epilepticus; F15.90 Other stimulant use, unspecified, uncomplicated; F17.200 Nicotine dependence, unspecified, uncomplicated; Z88.0 Allergy status to penicillin; Z79.899 Other long term (current) drug therapy; W51.XXXA Accidental striking against or bumped into by another person, initial encounter; Y93.89 Activity, other specified; Y92.89 Other specified places as the place of occurrence of the external cause; Y99.8 Other external cause status
CPT/HCPCS: 70450; 99284

== ENCOUNTER 2020-03-22 10:20 | Outpatient (CLI) | payer MEDICARE, MEDICAID | END 2020-03-22 23:59 | disposition home or self-care (01) | LOC: RAD 10:20 | PROVIDERS: ATTEND Psychiatry & Neurology Neurology | DX: G40.909 Epilepsy, unspecified, not intractable, without status epilepticus (principal) | CPT/HCPCS: 95816 ==

== ENCOUNTER 2020-09-03 11:12 | Emergency (ER) | payer MEDICAID, MEDICARE ==
[~2020-09-03] VITALS: Ht 175.3 cm; Wt 81.8 kg
[~2020-09-03 11:12] MED LIST changes: +LISI10TA27 PO; -LISI10TA4 PO
[2020-09-03] MEDS ORDERED: normal saline 1000ML IV soln IVB ONE (12:15)
[2020-09-03 12:31] LABS: ALANINE AMINOTRANSFERASE 171 U/L (12-78); ALBUMIN 3.9 G/DL (3.4-5.0); ALBUMIN/GLOBULIN RATIO 0.9 (1.1-1.5); ALKALINE PHOSPHATASE 84 IU/L (46-116); ANION GAP 18 (8-16); ASPARTATE AMINO TRANSFERASE 122 U/L (10-37); BILIRUBIN,TOTAL 1.2 MG/DL (0.1-1.0); BLOOD UREA NITROGEN 20 MG/DL (7-18); BUN/CREATININE RATIO 12.9 (5.4-32.0); CALCIUM 9.5 MG/DL (8.5-10.1); CHLORIDE 102 MMOL/L (99-107); CREATININE 1.55 MG/DL (0.60-1.10); GLUCOSE 108 MG/DL (70-104); SODIUM 139 MMOL/L (135-145); TOTAL CARBON DIOXIDE 19.2 MMOL/L (24-32); TOTAL PROTEIN 8.2 G/DL (6.4-8.2); eGFR 50 ML/MIN
[2020-09-03 12:32] LABS: POTASSIUM 4.5 MMOL/L (3.5-5.1)
[2020-09-03 12:33] LABS: BASOPHILS # (AUTO) 0.1 X10'3 (0-0.2); EOSINOPHILS % (AUTO) 0.3 % (0-6); HEMATOCRIT 43.2 % (42.0-52.0); HEMOGLOBIN 14.1 g/dl (14.0-17.9); LYMPHOCYTES # (AUTO) 1.1 X10'3 (1.1-4.8); LYMPHOCYTES % (AUTO) 17.6 % (21-51); MEAN CORPUSCULAR HEMOGLOBIN 27.6 PG (27.0-31.0); MEAN CORPUSCULAR HGB CONC 32.7 g/dL (33.0-36.5); MEAN CORPUSCULAR VOLUME 84.5 FL (78-98); MEAN PLATELET VOLUME 8.9 FL (7.4-10.4); MONOCYTES # (AUTO) 0.5 X10'3 (0-0.9); MONOCYTES % (AUTO) 8.2 % (2-12); NEUTROPHILS # (AUTO) 4.7 X10'3 (1.8-7.7); NEUTROPHILS % (AUTO) 72.9 % (42-75); PLATELET COUNT 342 X10'3 (140-440); RED BLOOD COUNT 5.11 X10'6 (4.70-6.10); WHITE BLOOD COUNT 6.4 X10'3 (4.5-11.0)
[2020-09-03 12:34] LABS: ETHANOL < 0.010 GM/DL (0.0-0.010)
[2020-09-03] MEDS ORDERED: levetiracetam 250mg tablet PO ONE (13:05)
[2020-09-03 15:37] VITALS: BP 141/105
== END 2020-09-03 15:40 | disposition home or self-care (01) ==
LOC: ER 11:12
DX: S00.03XA Contusion of scalp, initial encounter (principal); F17.200 Nicotine dependence, unspecified, uncomplicated; G40.802 Other epilepsy, not intractable, without status epilepticus; F15.90 Other stimulant use, unspecified, uncomplicated; Z88.0 Allergy status to penicillin; Z79.899 Other long term (current) drug therapy; Z72.89 Other problems related to lifestyle; W22.8XXA Striking against or struck by other objects, initial encounter; Y93.89 Activity, other specified; Y92.59 Other trade areas as the place of occurrence of the external cause; Y99.8 Other external cause status
CPT/HCPCS: 36415; 70460; 80053; 80320; 85025; 93005; 99285; J7030

== ENCOUNTER 2021-04-21 11:49 | Emergency (ER) | payer MEDICARE, MEDICAID ==
[~2021-04-21] VITALS: Ht 172.7 cm; Wt 90.0 kg
[2021-04-21 12:13] VITALS: BP 195/127
[2021-04-21 12:59] LABS: BASOPHILS % (AUTO) 0.4 % (0-1); EOSINOPHILS # (AUTO) 0.1 X10'3 (0-0.9); EOSINOPHILS % (AUTO) 1.5 % (0-6); HEMOGLOBIN 14.9 g/dl (14.0-17.9); LYMPHOCYTES % (AUTO) 32.7 % (21-51); MEAN CORPUSCULAR VOLUME 79.5 FL (78-98); MEAN PLATELET VOLUME 8.3 FL (7.4-10.4); MONOCYTES # (AUTO) 0.2 X10'3 (0-0.9); MONOCYTES % (AUTO) 4.1 % (2-12); NEUTROPHILS # (AUTO) 3.7 X10'3 (1.8-7.7); NEUTROPHILS % (AUTO) 61.3 % (42-75); PLATELET COUNT 161 X10'3 (140-440); RED BLOOD COUNT 5.54 X10'6 (4.70-6.10); RED CELL DISTRIBUTION WIDTH 14.8 % (11.5-14.5); WHITE BLOOD COUNT 6.1 X10'3 (4.5-11.0)
[2021-04-21] MEDS ORDERED: clindamycin 150mg capsule PO ONE (13:00)
[2021-04-21] MEDS ORDERED: CLIN300C54 PO (13:08)
[2021-04-21 13:10] LABS: ALANINE AMINOTRANSFERASE 49 U/L (12-78); ALBUMIN 3.9 G/DL (3.4-5.0); ALBUMIN/GLOBULIN RATIO 0.9 (1.1-1.5); ALKALINE PHOSPHATASE 109 IU/L (46-116); ANION GAP 9 (8-16); ASPARTATE AMINO TRANSFERASE 40 U/L (10-37); BILIRUBIN,TOTAL 0.6 MG/DL (0.1-1.0); BLOOD UREA NITROGEN 7 MG/DL (7-18); CALCIUM 8.7 MG/DL (8.5-10.1); CHLORIDE 103 MMOL/L (99-107); CREATININE 1.16 MG/DL (0.60-1.10); GLUCOSE 166 MG/DL (70-104); POTASSIUM 3.8 MMOL/L (3.5-5.1); SODIUM 138 MMOL/L (135-145); TOTAL CARBON DIOXIDE 25.9 MMOL/L (24-32); TOTAL PROTEIN 8.3 G/DL (6.4-8.2); eGFR 69 ML/MIN
== END 2021-04-21 13:22 | disposition home or self-care (01) ==
LOC: ER 11:49
DX: L03.116 Cellulitis of left lower limb (principal); G40.909 Epilepsy, unspecified, not intractable, without status epilepticus; F15.90 Other stimulant use, unspecified, uncomplicated; Z72.89 Other problems related to lifestyle; Z88.0 Allergy status to penicillin; Z79.2 Long term (current) use of antibiotics; Z79.899 Other long term (current) drug therapy
CPT/HCPCS: 36415; 80053; 85025; 99283; 99284

== ENCOUNTER 2021-08-15 08:23 | Inpatient (IN) | payer MEDICARE, MEDICAID ==
[~2021-08-15] VITALS: Ht 170.2 cm; Wt 84.1 kg
[2021-08-15] MEDS ORDERED: levetiracetam inj 1,000 MG in normal saline 100ml IV soln 90 ML IV STA (08:34)
[2021-08-15] MEDS ORDERED: thiamine 100mg/ml 2ml inj. IV ONE (08:35)
[2021-08-15] MEDS ORDERED: gabapentin 300mg capsule PO ONE (08:35)
[2021-08-15] MEDS ORDERED: famotidine/PF 10 mg/ml inj IV ONE (08:35)
[2021-08-15] MEDS ORDERED: ondansetron/PF 4mg/2ml inj IV ONE (08:35)
[2021-08-15] MEDS ORDERED: magnesium 2GM in 50ml NS 50 ML IV ONE (08:35)
[2021-08-15] MEDS ORDERED: normal saline 1000ML IV soln IV ONE (08:35)
[2021-08-15] MEDS ORDERED: folic acid 1mg/0.2ml inj IV ONE (08:35)
[2021-08-15] MEDS ORDERED: LORazepam 2 mg/ml vial IV ONE ×2 (08:35→09:45)
[2021-08-15] MEDS ORDERED: levetiracetam-NS 1000mg/100ml 100 ML IV ONE (08:55)
[2021-08-15 09:12] LABS: BASOPHILS % (AUTO) 0.5 % (0-1); EOSINOPHILS % (AUTO) 0.3 % (0-6); HEMATOCRIT 46.6 % (42.0-52.0); HEMOGLOBIN 15.6 g/dl (14.0-17.9); LYMPHOCYTES # (AUTO) 1.3 X10'3 (1.1-4.8); LYMPHOCYTES % (AUTO) 14.5 % (21-51); MEAN CORPUSCULAR HEMOGLOBIN 26.5 PG (27.0-31.0); MEAN CORPUSCULAR HGB CONC 33.6 g/dL (33.0-36.5); MONOCYTES # (AUTO) 0.5 X10'3 (0-0.9); MONOCYTES % (AUTO) 5.3 % (2-12); NEUTROPHILS # (AUTO) 7.2 X10'3 (1.8-7.7); NEUTROPHILS % (AUTO) 79.4 % (42-75); PLATELET COUNT 246 X10'3 (140-440); RED BLOOD COUNT 5.89 X10'6 (4.70-6.10); WHITE BLOOD COUNT 9.1 X10'3 (4.5-11.0)
[2021-08-15] MEDS ORDERED: cloNIDine 0.1 mg tablet PO ONE (09:25)
[2021-08-15 09:59] LABS: ALANINE AMINOTRANSFERASE 39 U/L (12-78); ALBUMIN 4.3 G/DL (3.4-5.0); ALKALINE PHOSPHATASE 88 IU/L (46-116); ANION GAP 19 (8-16); ASPARTATE AMINO TRANSFERASE 37 U/L (10-37); BILIRUBIN,TOTAL 0.5 MG/DL (0.1-1.0); BLOOD UREA NITROGEN 15 MG/DL (7-18); BUN/CREATININE RATIO 12.9 (5.4-32.0); CALCIUM 9.9 MG/DL (8.5-10.1); CHLORIDE 101 MMOL/L (99-107); CREATINE KINASE 558 U/L (39-308); CREATININE 1.16 MG/DL (0.60-1.10); GLUCOSE 127 MG/DL (70-104); MAGNESIUM 2.8 MG/DL (1.5-2.4); SODIUM 141 MMOL/L (135-145); TOTAL CARBON DIOXIDE 20.9 MMOL/L (24-32); TOTAL PROTEIN 8.5 G/DL (6.4-8.2); eGFR 69 ML/MIN
--- NOTE | 2021-08-15 12:28 | NUR ---
Striaght cath is performed with no output obtained. Patient has wet pants from several episodes of incontinence.
[2021-08-15 12:29] LABS: ETHANOL < 0.010 GM/DL (0.0-0.010)
[2021-08-15] MEDS ORDERED: haloperidol 5mg tablet PO PRN (12:50)
[2021-08-15] MEDS ORDERED: magnesium 2GM in 50ml NS 50 ML IV PRN (12:50)
[2021-08-15] MEDS ORDERED: magnesium Cl slow-release 64mg tablet PO PRN (12:50)
[2021-08-15] MEDS ORDERED: mag hydrox/Alum hydrox/simeth 30ml oral suspension PO PRN (12:50)
[2021-08-15] MEDS ORDERED: potassium Cl 20 mEq SR tablet PO PRN ×2 (12:50)
[2021-08-15] MEDS ORDERED: potassium CL 10mEq/100ml bag 100 ML IV PRN (12:50)
[2021-08-15] MEDS ORDERED: diphenhydrAMINE 25mg capsule PO PRN (12:50)
[2021-08-15] MEDS ORDERED: magnesium hydroxide 30ml (MOM) UD suspension PO PRN (12:50)
[2021-08-15] MEDS ORDERED: acetaminophen 650mg rectal suppository RC PRN (12:50)
[2021-08-15] MEDS ORDERED: magnesium 4gm in 100ml NS 100 ML IV PRN (12:50)
[2021-08-15] MEDS ORDERED: morphine 2 MG/ML inj. syringe IV PRN ×2 (12:50)
[2021-08-15] MEDS ORDERED: ondansetron/PF 4mg/2ml inj IV PRN (12:50)
[2021-08-15] MEDS ORDERED: dextrose 50%-water 50ml dispensing syringe IV PRN (12:50)
[2021-08-15] MEDS ORDERED: haloperidol lactate 5mg/ml inj IM PRN (12:50)
[2021-08-15] MEDS ORDERED: HYDROcodone/acetaminophen 10/325mg tab PO PRN (12:50)
[2021-08-15] MEDS ORDERED: HYDROcodone/acetaminophen 5mg/325mg tablet PO PRN (12:50)
[2021-08-15] MEDS ORDERED: bisacodyl 10mg suppository rectal RC PRN (12:50)
[2021-08-15] MEDS ORDERED: LORazepam 2 mg/ml vial IV PRN (12:50)
[2021-08-15] MEDS ORDERED: acetaminophen 325mg tablet PO PRN ×2 (12:50)
[2021-08-15 13:48] LABS: LACTIC SEPSIS 2.9 MMOL/L (0.4-2.0)
[2021-08-15 13:57] LABS: HEMOGLOBIN A1C 6.1 % (4.5-6.2)
[2021-08-15] MEDS: dextrose 5%-normal saline 1,000 ML IV SCH (14:01)
[2021-08-15] MEDS: thiamine 100mg/ml 2ml inj. IV SCH ×2 (14:01→22:15)
[2021-08-15] MEDS ORDERED: OMEP40CA21 PO (16:37)
[2021-08-15] MEDS ORDERED: ALBU18HF2 PO (16:37)
[2021-08-15] MEDS ORDERED: TRAZ-251 PO (16:37)
[2021-08-15] MEDS ORDERED: LEVE10006 PO (16:37)
[2021-08-15] MEDS ORDERED: GABA300C PO (16:42)
[2021-08-15 18:00] VITALS: BP 132/71
[2021-08-15 20:00] VITALS: BP 121/87
[2021-08-15] MEDS ORDERED: levetiracetam inj 500 MG in normal saline 100ml IV soln 95 ML IV SCH (20:00)
[2021-08-15] MEDS: docusate sod 100mg capsule PO SCH (20:00)
[2021-08-15] MEDS: K and/or MAG REPLACEMENT MC SCH (20:00)
[2021-08-15 20:01] VITALS: BP 146/92
[2021-08-15 20:04] VITALS: BP 144/96
[2021-08-15 22:00] VITALS: BP 127/57
[2021-08-15] MEDS: Levetiracetam-NS 500mg/100ml 100 ML IV SCH (22:16)
[2021-08-15] MEDS: heparin, porcine 5000 units/ml vial SQ SCH (22:20)
[2021-08-15] MEDS ORDERED: traZODone 50mg tablet PO PRN (22:55)
[2021-08-15] MEDS ORDERED: albuterol 2.5 MG/3 ML nebule NEB PRN (23:15)
[2021-08-16 02:00] VITALS: BP 161/86
[2021-08-16] MEDS: lactulose 20gm/30ml cup PO SCH ×2 (02:19→09:18)
[2021-08-16] MEDS: dextrose 5%-normal saline 1,000 ML IV SCH ×2 (02:19→04:50)
[2021-08-16 06:57] LABS: BASOPHILS % (AUTO) 0.3 % (0-1); EOSINOPHILS % (AUTO) 0.5 % (0-6); HEMATOCRIT 39.7 % (42.0-52.0); HEMOGLOBIN 13.2 g/dl (14.0-17.9); LYMPHOCYTES # (AUTO) 2.2 X10'3 (1.1-4.8); LYMPHOCYTES % (AUTO) 29.7 % (21-51); MEAN CORPUSCULAR HEMOGLOBIN 26.2 PG (27.0-31.0); MEAN CORPUSCULAR HGB CONC 33.2 g/dL (33.0-36.5); MEAN CORPUSCULAR VOLUME 78.9 FL (78-98); MEAN PLATELET VOLUME 8.1 FL (7.4-10.4); MONOCYTES # (AUTO) 0.6 X10'3 (0-0.9); MONOCYTES % (AUTO) 8.5 % (2-12); NEUTROPHILS # (AUTO) 4.4 X10'3 (1.8-7.7); PLATELET COUNT 177 X10'3 (140-440); RED BLOOD COUNT 5.03 X10'6 (4.70-6.10); RED CELL DISTRIBUTION WIDTH 14.8 % (11.5-14.5); WHITE BLOOD COUNT 7.3 X10'3 (4.5-11.0)
[2021-08-16 07:27] LABS: ALANINE AMINOTRANSFERASE 32 U/L (12-78); ALBUMIN 3.2 G/DL (3.4-5.0); ALBUMIN/GLOBULIN RATIO 1.1 (1.1-1.5); ALKALINE PHOSPHATASE 69 IU/L (46-116); ANION GAP 10 (8-16); ASPARTATE AMINO TRANSFERASE 29 U/L (10-37); BILIRUBIN,TOTAL 1.1 MG/DL (0.1-1.0); BLOOD UREA NITROGEN 13 MG/DL (7-18); BUN/CREATININE RATIO 13.8 (5.4-32.0); CALCIUM 8.1 MG/DL (8.5-10.1); CHLORIDE 108 MMOL/L (99-107); CHOL/HDL RATIO 3.4 (0.00-4.99); CHOLESTEROL 103 MG/DL (0-200); CREATININE 0.94 MG/DL (0.60-1.10); GLUCOSE 88 MG/DL (70-104); HDL CHOLESTEROL 30 MG/DL (35-60); LDL CHOLESTEROL 58 MG/DL (50-100); MAGNESIUM 2.1 MG/DL (1.5-2.4); PHOSPHORUS 3.2 MG/DL (2.3-4.5); POTASSIUM 3.8 MMOL/L (3.5-5.1); SODIUM 142 MMOL/L (135-145); TOTAL CARBON DIOXIDE 23.9 MMOL/L (24-32); TOTAL PROTEIN 6.1 G/DL (6.4-8.2); TRIGLYCERIDES 106 MG/DL (20-135); eGFR 88 ML/MIN
[2021-08-16] MEDS ORDERED: pantoprazole 40mg Tablet.DR PO SCH (07:30)
[2021-08-16] MEDS ORDERED: gabapentin 300mg capsule PO SCH (08:00)
[2021-08-16] MEDS ORDERED: levetiracetam 250mg tablet PO SCH (08:00)
[2021-08-16] MEDS: K and/or MAG REPLACEMENT MC SCH (08:00)
[2021-08-16] MEDS ORDERED: folic acid 1mg/0.2ml inj IV SCH (08:00)
[2021-08-16] MEDS ORDERED: lisinopril 10 MG tablet PO SCH (08:00)
[2021-08-16] MEDS: Levetiracetam-NS 500mg/100ml 100 ML IV SCH (09:16)
[2021-08-16] MEDS: thiamine 100mg/ml 2ml inj. IV SCH (09:17)
[2021-08-16] MEDS: heparin, porcine 5000 units/ml vial SQ SCH (09:17)
[2021-08-16] MEDS: docusate sod 100mg capsule PO SCH (09:19)
[2021-08-16 09:27] VITALS: BP_SYST 158
--- NOTE | 2021-08-16 10:47 | NUR ---
[id number] Hans Dey: Patient wants to leave AMA. Informed about EEG and MRI. -JAMIE Haque #[id number]
[2021-08-17] MEDS ORDERED: LORazepam 1 MG tablet PO PRN (12:50)
[2021-08-17] MEDS ORDERED: LORazepam 2 mg/ml vial IV PRN (12:50)
[2021-08-19] MEDS ORDERED: LORazepam 1 MG tablet PO PRN (12:50)
[2021-08-19] MEDS ORDERED: LORazepam 2 mg/ml vial IV PRN (12:50)
[2021-08-20] MEDS ORDERED: thiamine 100mg tablet PO SCH (08:00)
[2021-08-20] MEDS ORDERED: folic acid 1mg tablet PO SCH (08:00)
== END 2021-08-16 11:05 | disposition left against medical advice (07) | DRG 101 ==
LOC: ER 08:24 → ED HOLD 12:53 → PCU 3S 16:03
PROVIDERS: ADMIT Family Medicine; ATTEND Family Medicine
DX: G40.419 Other generalized epilepsy and epileptic syndromes, intractable, without status epilepticus (principal); E87.2 Acidosis; F10.239 Alcohol dependence with withdrawal, unspecified; Z20.822 Contact with and (suspected) exposure to COVID-19; I10 Essential (primary) hypertension; F32.A Depression, unspecified; F12.90 Cannabis use, unspecified, uncomplicated; Z53.29 Procedure and treatment not carried out because of patient's decision for other reasons; Z60.2 Problems related to living alone; I95.9 Hypotension, unspecified; F15.90 Other stimulant use, unspecified, uncomplicated; F41.9 Anxiety disorder, unspecified; F17.210 Nicotine dependence, cigarettes, uncomplicated; G62.9 Polyneuropathy, unspecified; J44.9 Chronic obstructive pulmonary disease, unspecified; Z79.899 Other long term (current) drug therapy; Z87.820 Personal history of traumatic brain injury; Z91.14 Patient's other noncompliance with medication regimen; Z88.0 Allergy status to penicillin; Z81.1 Family history of alcohol abuse and dependence; Z71.41 Alcohol abuse counseling and surveillance of alcoholic
CPT/HCPCS: 36000; 36415; 70450; 76937; 80053; 80061; 80320; 82140; 82550; 82948; 83036; 83605; 83735; 84100; 84145; 84146; 85025; 87635; 93005; 93306; 93880; 99291; C9803; G0378; J1644; J1953; J2060; J2405; J3411; J3475; J3490; J7030; J7042

== ENCOUNTER 2022-09-03 13:35 | Emergency (ER) | payer MEDICAID, MEDICARE ==
[~2022-09-03] VITALS: Ht 170.2 cm; Wt 90.0 kg
[~2022-09-03 13:35] MED LIST changes: +ALBU18HF2 PO; -CHLO25CA10 PO; -DIVA-74 PO; +GABA300C PO; +LEVE10006 PO; -LEVE500T PO; +OMEP40CA21 PO; +TRAZ-251 PO
[2022-09-03 15:13] LABS: BASOPHILS % (AUTO) 0.5 % (0-1); EOSINOPHILS # (AUTO) 0.2 X10'3 (0-0.9); EOSINOPHILS % (AUTO) 3.4 % (0-6); LYMPHOCYTES # (AUTO) 2.4 X10'3 (1.1-4.8); LYMPHOCYTES % (AUTO) 42.3 % (21-51); MEAN CORPUSCULAR HEMOGLOBIN 27.3 PG (27.0-31.0); MEAN CORPUSCULAR HGB CONC 32.6 g/dL (33.0-36.5); MEAN CORPUSCULAR VOLUME 83.7 FL (78-98); MEAN PLATELET VOLUME 8.2 FL (7.4-10.4); MONOCYTES # (AUTO) 0.4 X10'3 (0-0.9); NEUTROPHILS # (AUTO) 2.6 X10'3 (1.8-7.7); NEUTROPHILS % (AUTO) 46.8 % (42-75); PLATELET COUNT 164 X10'3 (140-440); RED CELL DISTRIBUTION WIDTH 14.4 % (11.5-14.5); WHITE BLOOD COUNT 5.6 X10'3 (4.5-11.0)
[2022-09-03 15:27] LABS: ALANINE AMINOTRANSFERASE 74 U/L (12-78); ALBUMIN 4.4 G/DL (3.4-5.0); ALBUMIN/GLOBULIN RATIO 1.1 (1.1-1.5); ALKALINE PHOSPHATASE 70 IU/L (46-116); ANION GAP 9 (8-16); ASPARTATE AMINO TRANSFERASE 66 U/L (10-37); BILIRUBIN,TOTAL 0.3 MG/DL (0.1-1.0); BLOOD UREA NITROGEN 6 MG/DL (7-18); BUN/CREATININE RATIO 6.2 (5.4-32.0); CALCIUM 9.5 MG/DL (8.5-10.1); CHLORIDE 103 MMOL/L (99-107); CREATININE 0.97 MG/DL (0.60-1.10); GLUCOSE 114 MG/DL (70-104); POTASSIUM 3.7 MMOL/L (3.5-5.1); SODIUM 142 MMOL/L (135-145); TOTAL CARBON DIOXIDE 30.5 MMOL/L (24-32); TOTAL PROTEIN 8.4 G/DL (6.4-8.2); eGFR 84 ML/MIN
[2022-09-03 17:17] VITALS: BP 161/100
== END 2022-09-03 17:20 | disposition home or self-care (01) ==
LOC: ER 13:36
DX: R41.0 Disorientation, unspecified (principal); R11.0 Nausea; R56.9 Unspecified convulsions; J44.9 Chronic obstructive pulmonary disease, unspecified; F17.200 Nicotine dependence, unspecified, uncomplicated; F15.90 Other stimulant use, unspecified, uncomplicated; Z60.2 Problems related to living alone; Z72.89 Other problems related to lifestyle; Z88.0 Allergy status to penicillin; Z79.899 Other long term (current) drug therapy
CPT/HCPCS: 36415; 80053; 85025; 99283